=== PATIENT | female | born 1950 | race Caucasian/White ===

== ENCOUNTER 2016-06-21 09:25 | Observation (INO) | payer OTHER ==
[2016-06-21] VITALS (12 sets, daily range): BP systolic 119–154; BP diastolic 69–85; PULSE 65–87; RESP 16–18; TEMP 96.9–98; O2SAT 97–100
[~2016-06-21] VITALS: Ht 162.6 cm; Wt 70.0 kg
[~2016-06-21 09:25] MED LIST: CYCL5TAB PO; LORT7.5T3 PO; Z.0.NO CURRENT MEDS
[2016-06-21] MEDS ORDERED: SODIUM CHLORIDE 0.9% FLUSH 5 ML FLUSH IVF PRN ×2 (10:15→12:30)
[2016-06-21 10:26] LABS: BLOOD, URINE NEG (NEG); GLUCOSE,URINE NEG (NEG); KETONE, URINE NEG (NEG); NITRITE,URINE NEG (NEG)
[2016-06-21 10:26] LABS: BASOPHIL # 0.1 TH/MM3 (0-0.2); BASOPHIL % 2.2 % (0.0-2.0); EOSINOPHIL # 0.1 TH/MM3 (0-0.4); EOSINOPHIL % 1.9 % (0.0-4.0); HEMO FLAGS DIFF FINAL; LYMPH % 38.6 % (9.0-44.0); LYMPHOCYTE # 2.4 TH/MM3 (1.0-4.8); MEAN CORPUSCULAR HEMOGLOBIN 30.7 PG (27.0-34.0); MEAN CORPUSCULAR HGB CONC 34.9 % (32.0-36.0); MONO % 9.1 % (0.0-8.0); NEUT % 48.2 % (16.0-70.0); PLATELET COUNT 210 TH/MM3 (150-450); RED BLOOD COUNT 4.54 MIL/MM3 (4.00-5.30); RED CELL DISTRIBUTION WIDTH 12.7 % (11.6-17.2); WHITE BLOOD COUNT 6.2 TH/MM3 (4.0-11.0)
--- NOTE | 2016-06-21 10:26 | RADHPO ---
EXAM DATE/TIME: 06/21/2016 10:08 [facility] COMPARISON: No previous studies available for comparison. INDICATIONS : Chest pain for 3 weeks and dizziness for 2 days. MEDICAL HISTORY : None. SURGICAL HISTORY : None. ENCOUNTER: Initial ACUITY: 3 weeks PAIN SCORE: 2/10 LOCATION: Bilateral chest FINDINGS: A single view of the chest demonstrates the lungs to be symmetrically aerated without evidence of mas s, infiltrate or effusion. The cardiomediastinal contours are unremarkable. Osseous structures are intact. CONCLUSION: Normal examination. Josseline Krishnamurthy MD on June 21, 2016 at 10:25 Board Certified Radiologist. This report was verified electronically.
[2016-06-21 10:30] LABS: METHOD OF COLLECTION CLEAN CATCH; URINE COLOR YELLOW (YELLW/STRAW)
[2016-06-21 10:31] LABS: COMMENT (UR) CULT NOT INDICATED; CULTURE IF INDICATED CULT NOT INDICATED; RBC, URINE 0-3 /hpf (0-3); SQUAMOUS EPITHELIAL CELL URINE 0-5 /hpf (0-5)
[2016-06-21 10:35] LABS: CHLORIDE 106 MEQ/L (98-107); POTASSIUM 3.8 MEQ/L (3.5-5.1); SODIUM (NA) 143 MEQ/L (136-145)
[2016-06-21 10:39] LABS: ANION GAP 8 MEQ/L (5-15); BICARBONATE 28.6 MEQ/L (21.0-32.0); BLOOD UREA NITROGEN 12 MG/DL (7-18)
[2016-06-21 10:42] LABS: ALT (GPT) 15 U/L (10-53); APTT (PATIENT) 26.4 SEC (24.3-30.1); AST (GOT) 12 U/L (15-37); GLOMERULAR FILTRATION RATE 96 ML/MIN (>89); PROTHROMBIN TIME - PATIENT 10.5 SEC (9.8-11.6)
[2016-06-21 10:44] LABS: TOTAL BILIRUBIN ADULT 0.3 MG/DL (0.2-1.0)
[2016-06-21 10:45] LABS: ALKALINE PHOSPHATASE 92 U/L (45-117)
[2016-06-21 10:46] LABS: CREATINE KINASE 69 U/L (26-192)
--- NOTE | 2016-06-21 10:50 | PD ---
HPI Chief Complaint: Cardiac Complaint Time Seen by Provider: 09:56 Travel History International Travel<30 days: No Contact w/Intl Traveler<30days: No Traveled to known affect area: No History of Present Illness HPI 66-year-old female here for evaluation of mid/upper back pain, bilateral shoulder pain, and dizziness. For the last 2 days patient has had intermittent bilateral shoulder pain, no trauma, described as an ache. Today when she woke up she noticed a pain in her mid upper back and felt dizzy/lightheaded. Patient denies any history of cardiac disease. She feels intermittently short of breath. No fevers, chills, cough, or recent illness. No paresthesias or motor deficits. No urinary symptoms. No modifying factors to back pain. PFSH Past Medical History Diminished Hearing: No Gastrointestinal Disorders: Yes Menopausal: Yes Past Surgical History Appendectomy: Yes Social History Alcohol Use: No Tobacco Use: No Substance Use: No Allergies-Medications (Allergen,Severity, Reaction): Coded Allergies: No Known Allergies (Verified , 06/21/16) Reported Meds & Prescriptions Reported Meds & Active Scripts Active No Active Prescriptions or Reported Medications Review of Systems Except as stated in HPI: all other systems reviewed are Neg Physical Exam Narrative GENERAL: Well-developed, well-nourished, comfortable, no acute distress. SKIN: Warm and dry. No rash. HEAD: Atraumatic. Normocephalic. EYES: Pupils equal and round. No scleral icterus. No injection or drainage. ENT: No nasal bleeding or discharge. Mucous membranes pink and moist. Bilateral tympanic members and external auditory canals are normal. NECK: Trachea midline. No JVD. No nuchal rigidity. CARDIOVASCULAR: Regular rate and rhythm. Distal pulses brisk and equal bilaterally. RESPIRATORY: No accessory muscle use. Clear to auscultation. Breath sounds equal bilaterally. GASTROINTESTINAL: Abdomen soft, non-tender, nondistended. MUSCULOSKELETAL: No obvious deformities. No clubbing. No cyanosis. No edema. No midline vertebral step-off or tenderness. NEUROLOGICAL: Awake and alert. No obvious cranial nerve deficits. Motor grossly within normal limits. Normal speech. PSYCHIATRIC: Appropriate mood and affect; insight and judgment normal. Data Data Last Documented VS Vital Signs Date Time Temp Pulse Resp B/P Pulse Ox O2 Delivery O2 Flow Rate FiO2 06/21/16 11:20 68 16 140/75 100 Room Air 06/21/16 09:45 98.0 Orders Complete Blood Count With Diff (06/21/16 10:02) Comprehensive Metabolic Panel (06/21/16 10:02) Act Partial Throm Time (Ptt) (06/21/16 10:02) Prothrombin Time / Inr (Pt) (06/21/16 10:02) Ckmb (Isoenzyme) Profile (06/21/16 10:02) Troponin I (06/21/16 10:02) Urinalysis - C+S If Indicated (06/21/16 10:02) Influenzae A/B Antigen (06/21/16 10:02) Iv Access Insert/Monitor (06/21/16 10:02) Ecg Monitoring (06/21/16 10:02) Oximetry (06/21/16 10:02) Oxygen Administration (06/21/16 10:02) Chest, Single Ap (06/21/16 10:02) Sodium Chloride 0.9% Flush (Ns Flush) (06/21/16 10:15) Cta Thor Abd Aorta W Iv C W3d (06/21/16 ) Ct Brain W/O Iv Contrast(Rout) (06/21/16 ) Sodium Chlor 0.9% 1000 Ml Inj (Ns 1000 M (06/21/16 11:00) Meclizine (Antivert) (06/21/16 11:00) Iohexol 350 Inj (Omnipaque 350 Inj) (06/21/16 11:34) Acetaminophen (Tylenol) (06/21/16 11:45) Aspirin Chew (Aspirin Chew) (06/21/16 12:15) Labs Laboratory Tests Test 06/21/16 06/21/16 09:40 10:20 White Blood Count 6.2 TH/MM3 Red Blood Count 4.54 MIL/MM3 Hemoglobin 13.9 GM/DL Hematocrit 40.0 % Mean Corpuscular Volume 88.0 FL Mean Corpuscular Hemoglobin 30.7 PG Mean Corpuscular Hemoglobin 34.9 % Concent Red Cell Distribution Width 12.7 % Platelet Count 210 TH/MM3 Mean Platelet Volume 10.7 FL Neutrophils (%) (Auto) 48.2 % Lymphocytes (%) (Auto) 38.6 % Monocytes (%) (Auto) 9.1 % Eosinophils (%) (Auto) 1.9 % Basophils (%) (Auto) 2.2 % Neutrophils # (Auto) 3.0 TH/MM3 Lymphocytes # (Auto) 2.4 TH/MM3 Monocytes # (Auto) 0.6 TH/MM3 Eosinophils # (Auto) 0.1 TH/MM3 Basophils # (Auto) 0.1 TH/MM3 CBC Comment DIFF FINAL Differential Comment Prothrombin Time 10.5 SEC Prothromb Time International 1.0 RATIO Ratio Activated Partial 26.4 SEC Thromboplast Time Sodium Level 143 MEQ/L Potassium Level 3.8 MEQ/L Chloride Level 106 MEQ/L Carbon Dioxide Level 28.6 MEQ/L Anion Gap 8 MEQ/L Blood Urea Nitrogen 12 MG/DL Creatinine 0.62 MG/DL Estimat Glomerular Filtration 96 ML/MIN Rate Random Glucose 89 MG/DL Calcium Level 8.6 MG/DL Total Bilirubin 0.3 MG/DL Aspartate Amino Transf 12 U/L (AST/SGOT) Alanine Aminotransferase 15 U/L (ALT/SGPT) Alkaline Phosphatase 92 U/L Total Creatine Kinase 69 U/L Troponin I LESS THAN 0.02 NG/ML Total Protein 7.5 GM/DL Albumin 3.4 GM/DL Urine Collection Type CLEAN CATCH Urine Color YELLOW Urine Turbidity CLEAR Urine pH 6.0 Urine Specific [place] 1.016 Urine Protein NEG mg/dL Urine Glucose (UA) NEG mg/dL Urine Ketones NEG mg/dL Urine Occult Blood NEG Urine Nitrite NEG Urine Bilirubin NEG Urine Leukocyte Esterase SMALL Urine RBC 0-3 /hpf Urine WBC 3-5 /hpf Urine Squamous Epithelial 0-5 /hpf Cells Microscopic Urinalysis Comment CULT NOT INDICATED Urine Collection Time 10:20 MDM Medical Decision Making Medical Screen Exam Complete: Yes Emergency Medical Condition: Yes Interpretation(s) EKG: Sinus, rate 69, normal axis, normal intervals, low QRS full touches, no acute ischemic abnormality. Differential Diagnosis ACS, pneumothorax, pericarditis, PE, pneumonia, dissection, thoracic aneurysm, anemia, intracranial abnormality, vertigo, UTI, electrolyte abnormality Narrative Course Vital signs show heart rate 70, blood pressure 141/85, pulse ox 100% on room air , oral temp of 98F. CBC is unremarkable. CMP is unremarkable. Cardiac enzymes are negative. Influenza is negative. UA is not suggestive of UTI. Chest x-ray read as normal examination. CT head read as no acute disease. CT aorta: The thoracic aorta is intact. There is no evidence of dissection. The abdominal aorta and iliac vessels are intact. The pulmonary arteries are patent. The patient and the patient's were made aware of all findings. The patient is still complaining of pain between her shoulder blades as well as dizziness. There is no tenderness to her upper back. Pain does not appear to be musculoskeletal and could be a chest pain equivalent. She was given meclizine and a liter of normal saline. I will also give her aspirin. I will admit her to the chest pain center for further cardiac evaluation. She is amenable to this plan. Case discussed with hospitalist Dr. Woods who will admit the patient to her service. Diagnosis Primary Impression: Chest pain Qualified Code: R07.9 - Chest pain, unspecified type Additional Impression: Dizziness Admitting Information Admitting Physician Requests: Observation Scripts No Active Prescriptions or Reported Meds Giorgi Hendricks MD Jun 21, 2016 10:49
[2016-06-21] MEDS ORDERED: SODIUM CHLOR 0.9% 1000 ML INJ 1,000 ML IV ONE (11:00)
[2016-06-21] MEDS ORDERED: MECLIZINE HCL 25 MG TAB PO ONE (11:00)
--- NOTE | 2016-06-21 11:33 | RADHPO ---
EXAM DATE/TIME: 06/21/2016 10:49 [facility] COMPARISON: CT BRAIN W/O CONTRAST, November 17, 2010, 20:59. INDICATIONS : Dizziness. RADIATION DOSE: 67.85 CTDIvol (mGy) MEDICAL HISTORY : None SURGICAL HISTORY : Appendectomy. ENCOUNTER: Initial ACUITY: 1 week PAIN SCALE: 5/10 LOCATION: cranial TECHNIQUE: Multiple contiguous axial images were obtained of the head. Using automated exposure control and adj ustment of the mA and/or kV according to patient size, radiation dose was kept as low as reasonably a chievable to obtain optimal diagnostic quality images. FINDINGS: CEREBRUM: The ventricles are normal for age. No evidence of midline shift, mass lesion, hemorrhage or acute in farction. No extra-axial fluid collections are seen. POSTERIOR FOSSA: The cerebellum and brainstem are intact. The 4th ventricle is midline. The cerebellopontine angle i s unremarkable. EXTRACRANIAL: The visualized portion of the orbits is intact. SKULL: The calvaria is intact. No evidence of skull fracture. CONCLUSION: No acute disease. Josseline Krishnamurthy MD on June 21, 2016 at 11:30 Board Certified Radiologist. This report was verified electronically.
[2016-06-21] MEDS ORDERED: IOHEXOL 350 MG/ML 10 ML VIAL (for RAD DIAG) IV ONE (11:34)
[2016-06-21] MEDS ORDERED: ACETAMINOPHEN 325 MG TAB PO ONE (11:45)
--- NOTE | 2016-06-21 12:02 | RADHPO ---
EXAM DATE/TIME: 06/21/2016 10:55 [facility] COMPARISON: CT BRAIN W/O CONTRAST, June 21, 2016, 10:49. INDICATIONS : Dizziness. Heart palpitations. Pain between shoulder blades. IV CONTRAST: 85 cc Omnipaque 350 (iohexol) IV RADIATION DOSE: 8.72 CTDIvol (mGy) MEDICAL HISTORY : None SURGICAL HISTORY : Appendectomy. ENCOUNTER: Initial ACUITY: 1 week PAIN SCALE: 8/10 LOCATION: Bilateral chest TECHNIQUE: Volumetric scanning was performed using a multi-row detector CT scanner. The data was post processed with a variety of visualization algorithms including full volume maximum intensity projection, multi -planar sliding thin slab reformation, curved planar reformation, and surface rendering techniques. Using automated exposure control and adjustment of the mA and/or kV according to patient size, radiat ion dose was kept as low as reasonably achievable to obtain optimal diagnostic quality images. FINDINGS: Thoracic aorta: The aortic root is normal in caliber. The ascending aorta is normal in size. There is normal anatomic branching of the great vessels. The origin of the great vessels are widely patent. The aortic arch a nd descending thoracic aorta are normal in caliber. There is no evidence of dissection. The pulmonary arteries are patent. Abdominal aorta: The celiac, SMA, renal arteries and NEIDA are widely patent. The abdominal aorta is normal in caliber. The common iliac, internal iliac and external iliac circulation is widely patent. CT source data: The visualized pulmonary parenchyma is clear. There is no significant hilar or mediastinal adenopathy . No pericardial effusion is present. No pleural effusion is present. Imaging through the upper abdom en demonstrates several simple cysts within the liver. There is no retroperitoneal lymphadenopathy. T he spleen, pancreas, adrenal glands and kidneys are intact. The visualized loops of small large bowel are unremarkable. CONCLUSION: 1. The thoracic aorta is intact. There is no evidence of dissection. 2. The abdominal aorta and iliac vessels are intact. Fabio Sofia MD on June 21, 2016 at 11:54 Board Certified Radiologist. This report was verified electronically.
[2016-06-21] MEDS ORDERED: ASPIRIN 81 MG CHEW TAB PO ONE (12:15)
[2016-06-21] MEDS ORDERED: ACETAMINOPHEN/HYDROcodone 325 MG/7.5 MG TAB PO PRN (12:30)
[2016-06-21] MEDS ORDERED: MORPHINE SULFATE 4 MG/ML INJ IV PRN (12:30)
[2016-06-21] MEDS ORDERED: NITROGLYCERIN 0.4 MG SL 25 TABS/BTL SL PRN (12:30)
[2016-06-21] MEDS ORDERED: ACETAMINOPHEN 500 MG CPLT PO PRN (12:30)
[2016-06-21] MEDS ORDERED: ONDANSETRON HCL 4 MG/2 ML VIAL IV PRN (12:30)
[2016-06-21] MEDS ORDERED: cloNIDine HCL 0.1 MG TAB PO PRN (12:45)
[2016-06-21 13:16] LABS: CREATINE KINASE 53 U/L (26-192)
--- NOTE | 2016-06-21 14:07 | HHI.HP ---
[facility] Service [facility] Primary Care Physician Ranjit Vazquez M.D. Admission Diagnosis chest pain Diagnoses: (1) Dizziness Diagnosis: Principal (2) Chest pain Diagnosis: Principal (3) Back pain Diagnosis: Principal Chief Complaint: heart racing, dizziness, chest pain, back pain Travel History International Travel<30 Days: No Contact w/Intl Traveler <30 Da: No Traveled to Known Affected Are: No History of Present Illness 66-year-old female with history of gastritis recently diagnosed but no other significant medical history was admitted to chest pain center although primary complaint is dizziness. Patient states that her heart has been racing for the past month. She states today she started to experience back pain and left shoulder pain which has been constant since midnight today, and had R shoulder pain prior to this. Dizziness started today. Patient feels like the room is spinning. Her states she had significant difficulty ambulating because of it. Patient denies any exacerbation with head movement. She states she did have an episode of this 2 years ago and was evaluated by her PCP at that time who thought she had an inner ear issue and she was prescribed medication. She additionally felt numbness in her left fingers this morning. She states she's had some left-sided chest pain over the past week. She also states she has some pain at the base of the right neck. She denies any diaphoresis or shortness of breath. She denies any fevers or chills, or recent cold symptoms. Denies any blurred vision, double vision, altered speech, or focal weakness. States she's had some nausea. She states her appetite is good but she hesitates to to eat as she recently had an endoscopy on Saturday by Dr. Max revealing gastritis. States she has been hydrating. Her states she was supposed to undergo a liver ultrasound tomorrow and is scheduled for a HIDA scan on Saturday. Patient denies any abdominal pain, vomiting, or diarrhea. She denies any melena or hematochezia. Patient has appointment Dr. Howe as a new patient on 07/02/16. Review of Systems Constitutional: COMPLAINS OF: Dizziness, DENIES: Diaphoretic episodes, Fever, Chills Eyes: DENIES: Blurred vision, Diplopia Ears, nose, mouth, throat: DENIES: Throat pain, Ear Pain, Running Nose Respiratory: DENIES: Cough, Shortness of breath Cardiovascular: COMPLAINS OF: Chest pain, Palpitations, DENIES: Lower Extremity Edema Gastrointestinal: COMPLAINS OF: Nausea, DENIES: Abdominal pain, Black stools, Bloody stools, Diarrhea, Vomiting, Anorexia Musculoskeletal: COMPLAINS OF: Back pain, Neck pain Neurologic: COMPLAINS OF: Paresthesias, DENIES: Localized weakness, Speech Problems Other ROS x 10 negative unless otherwise indicated above. Past Family Social History Past Medical History Gastritis Possible episode of vertigo 2 years ago Past Surgical History Appendectomy Reported Medications Reported Meds & Active Scripts Active No Active Prescriptions or Reported Medications Allergies: Coded Allergies: No Known Allergies (Verified , 06/21/16) Family History Mother: at age 90. Father: Hypertension; at age 76. Older sister still living, healthy. Social History Denies alcohol use, tobacco use, or illicit drug use. Physical Exam Vital Signs Vital Signs Date Time Temp Pulse Resp B/P Pulse Ox O2 Delivery O2 Flow Rate FiO2 06/21/16 14:04 74 16 146/73 100 Room Air 06/21/16 13:18 98 21 06/21/16 12:46 18 06/21/16 12:19 65 16 150/71 99 Room Air 06/21/16 11:20 68 16 140/75 100 Room Air 06/21/16 09:45 98.0 70 18 141/85 100 06/21/16 09:40 100 Room Air 06/21/16 09:40 100 Room Air Physical Exam GENERAL: This is a well-nourished, well-developed patient, in no apparent distress. SKIN: No rashes, ecchymoses or lesions. HEAD: Atraumatic. Normocephalic. EYES: Pupils equal round and reactive. Extraocular motions intact. No scleral icterus. No injection or drainage. ENT: Left TM dull, but no erythema of TMs bilaterally. No TM perforation or drainage in EACs. Throat without erythema, tonsillar hypertrophy or exudate. Uvula midline. Airway patent. NECK: Trachea midline. No carotid bruits bilaterally. Tender over base of right neck. CARDIOVASCULAR: Regular rate and rhythm without murmurs, gallops, or rubs. RESPIRATORY: Clear to auscultation. Breath sounds equal bilaterally. No wheezes , rales, or rhonchi. GASTROINTESTINAL: Abdomen soft, non-tender, nondistended. No guarding. MUSCULOSKELETAL: Reproducible tenderness over left thoracic paraspinal muscles. No lower extremity edema bilaterally. NEUROLOGICAL: Awake and alert. No obvious cranial nerve deficits. Motor grossly within normal limits. Five out of 5 muscle strength in bilateral arms and legs. Normal speech. Laboratory Laboratory Tests Test 06/21/16 06/21/16 06/21/16 09:40 10:20 12:40 White Blood Count 6.2 Red Blood Count 4.54 Hemoglobin 13.9 Hematocrit 40.0 Mean Corpuscular Volume 88.0 Mean Corpuscular Hemoglobin 30.7 Mean Corpuscular Hemoglobin 34.9 Concent Red Cell Distribution Width 12.7 Platelet Count 210 Mean Platelet Volume 10.7 Neutrophils (%) (Auto) 48.2 Lymphocytes (%) (Auto) 38.6 Monocytes (%) (Auto) 9.1 Eosinophils (%) (Auto) 1.9 Basophils (%) (Auto) 2.2 Neutrophils # (Auto) 3.0 Lymphocytes # (Auto) 2.4 Monocytes # (Auto) 0.6 Eosinophils # (Auto) 0.1 Basophils # (Auto) 0.1 CBC Comment DIFF FINAL Differential Comment Prothrombin Time 10.5 Prothromb Time International 1.0 Ratio Activated Partial 26.4 Thromboplast Time Sodium Level 143 Potassium Level 3.8 Chloride Level 106 Carbon Dioxide Level 28.6 Anion Gap 8 Blood Urea Nitrogen 12 Creatinine 0.62 Estimat Glomerular Filtration 96 Rate Random Glucose 89 Calcium Level 8.6 Total Bilirubin 0.3 Aspartate Amino Transf 12 (AST/SGOT) Alanine Aminotransferase 15 (ALT/SGPT) Alkaline Phosphatase 92 Total Creatine Kinase 69 53 Troponin I LESS THAN 0.02 LESS THAN 0.02 Total Protein 7.5 Albumin 3.4 Urine Collection Type CLEAN CATCH Urine Color YELLOW Urine Turbidity CLEAR Urine pH 6.0 Urine Specific [place] 1.016 Urine Protein NEG Urine Glucose (UA) NEG Urine Ketones NEG Urine Occult Blood NEG Urine Nitrite NEG Urine Bilirubin NEG Urine Leukocyte Esterase SMALL Urine RBC 0-3 Urine WBC 3-5 Urine Squamous Epithelial 0-5 Cells Microscopic Urinalysis Comment CULT NOT INDICATED Urine Collection Time 10:20 Date/Time Procedure Status Source Growth 06/21/16 10:15 Influenza Types A,B Antigen ([facility]) - Final Complete Nasal Washing NEGATIVE FOR FLU A AND B ANTIGEN.... Result Diagram: 06/21/16 0940 06/21/16 0940 Imaging Last Impressions Chest X-Ray 06/21/16 1002 Signed Impressions: Service Date/Time: , June 21, 2016 10:08 - CONCLUSION: Normal examination. Josseline Krishnamurthy MD Head CT 06/21/16 0000 Signed Impressions: Service Date/Time: , June 21, 2016 10:49 - CONCLUSION: No acute disease. Josseline Krishnamurthy MD Aorta CTA 06/21/16 0000 Signed Impressions: Service Date/Time: May 10:55 - CONCLUSION: 1. The thoracic aorta is intact. There is no evidence of dissection. 2. The abdominal aorta and iliac vessels are intact. Fabio Sofia MD Assessment and Plan Assessment and Plan 66-year-old female with: Dizziness: Started today. Sounds like vertigo as patient feels the room is spinning. Worse with sitting forward or ambulating. Head CT personally reviewed and normal. -MRI and MRA brain -MRA carotids -Meclizine tid prn -IV NS -Orthostatic vital signs -Telemetry Chest pain/back pain: Patient does have some reproducible tenderness over the left thoracic paraspinal muscles but has also been experiencing left-sided chest pain at times over the past week and has been having "racing heart" for the past month. Chest x-rays personally interpreted and normal. Aorta CTA was performed without evidence of dissection. Blood pressure stable. Troponin 2 less than 0.02. EKGs 2 personally interpreted with sinus rhythm and no evidence of ischemia. -Nitro/Gallitzin/morphine prn pain -Daily 325 mg aspirin -Lexiscan to be performed today. RN informs me patient last ate at 4 AM and has had no caffeine or decaf beverages. DVT prophylaxis: TEDs/SCDs. Avoid chemical prophylaxis due to recent gastritis. Discussed Condition With Dr. Woods attending Problem Qualifiers (1) Chest pain: Qualified Code: R07.9 - Chest pain, unspecified type (2) Back pain: Qualified Code: M54.6 - Acute left-sided thoracic back pain Shavon Montiel Jun 21, 2016 14:07
[2016-06-21] MEDS ORDERED: MECLIZINE HCL 25 MG TAB PO PRN (14:15)
[2016-06-21] MEDS: SODIUM CHLOR 0.9% 1000 ML INJ 1,000 ML IV SCH ×2 (14:54→18:32)
[2016-06-21] MEDS ORDERED: REGADENOSON INJ 0.4 MG/5 ML SYR IV ONE (17:08)
--- NOTE | 2016-06-21 17:26 | RADHPO ---
EXAM DATE/TIME: 06/21/2016 16:01 [facility] COMPARISON: No previous studies available for comparison. INDICATIONS : Dizziness. CONTRAST: 20 cc Omniscan (gadodiamide) IV MEDICAL HISTORY : None. SURGICAL HISTORY : Appendectomy. ENCOUNTER: Initial ACUITY: 1 day PAIN SCORE: 7/10 LOCATION: Bilateral cranial TECHNIQUE: Multiplanar, multisequence MRI of the brain was performed both prior to and following the administrat ion of paramagnetic contrast. FINDINGS: CEREBRUM: The ventricles are normal for age. No evidence of midline shift, mass lesion, hemorrhage or acute in farction. No extraaxial fluid collections are seen. The pituitary gland and suprasellar cistern are normal in configuration. WHITE MATTER: No significant signal abnormalities are seen in the white matter. POSTERIOR FOSSA: The cerebellum and brainstem are intact. The 4th ventricle is midline. The cerebellopontine angle is unremarkable. The cerebellar tonsils are normal in position. DIFFUSION IMAGING: No focal areas of restricted diffusion are seen. No evidence of acute infarction. EXTRACRANIAL: The visualized portions of the orbits and paranasal sinuses are unremarkable. POST-CONTRAST: No abnormal areas of parenchymal or dural enhancement. No evidence of blood-brain barrier breakdown. CONCLUSION: 1. Normal examination. Fabio Sofia MD on June 21, 2016 at 17:16 Board Certified Radiologist. This report was verified electronically.
--- NOTE | 2016-06-21 17:30 | RADHPO ---
EXAM DATE/TIME: 06/21/2016 16:01 [facility] COMPARISON: No previous studies available for comparison. INDICATIONS : Dizziness. MEDICAL HISTORY : None. SURGICAL HISTORY : Appendectomy. ENCOUNTER: Initial ACUITY: 1 day PAIN SCORE: 6/10 LOCATION: Bilateral cranial Please note a normal MRA of the brain does not entirely exclude the possibility of a small aneurysm, nor the possibility of distal intracranial vessel disease. TECHNIQUE: 3D time of flight MRA was performed. Source images, multiplanar STS MIP, and 3D volume MIP reconstru ctions were reviewed. FINDINGS: Anterior circulation: The internal carotid arteries demonstrate no abnormality or atherosclerotic change. A1 segments and m ore distal anterior cerebral arteries are symmetric and within normal limits. The middle cerebral art ivan branches demonstrate symmetric flow related enhancement. No aneurysm or high-grade stenosis is id entified. Posterior circulation: There are patent posterior cerebral arteries bilaterally. Vertebral arteries are codominant. The basi lar artery and posterior cerebral arteries demonstrate no significant stenosis or abnormality. No ane urysm is visualized. CONCLUSION: No intracranial vascular abnormality is identified. Eliseo Amado MD on June 21, 2016 at 17:26 Board Certified Radiologist. This report was verified electronically.
--- NOTE | 2016-06-21 18:19 | RADHPO ---
EXAM DATE/TIME: 06/21/2016 16:01 [facility] COMPARISON: No previous studies available for comparison. INDICATIONS : Dizziness. CONTRAST: 20 cc Omniscan (gadodiamide) IV MEDICAL HISTORY : None. SURGICAL HISTORY : Appendectomy. ENCOUNTER: Initial ACUITY: 1 day PAIN SCORE: 7/10 LOCATION: Bilateral cranial Percent stenosis is calculated using the diameter of the stenotic region over the diameter of the nor mal distal internal carotid artery. TECHNIQUE: Bolus infused MRA of the extracranial circulation was performed using a neurovascular coil. Post pro cessing was performed including rotationg subvolume maximum intensity projections of each carotid art ivan, rotating full volume maximum intensity projections of both carotid arteries, sagittal and robledo l sliding thin slab reformations of each carotid artery, and left oblique sliding thin slab reformati on through the aortic arch to include the origin of the arch branch vessels. FINDINGS: AORTIC ARCH: There is a three vessel origin of the great vessels from the aorta. No evidence of ostial narrowing. RIGHT CAROTID: The common carotid artery is intact. The carotid bulb has a normal configuration without ulceration or narrowing. The internal carotid artery lumen is smooth without stenosis. The external carotid ar margo is intact. LEFT CAROTID: The common carotid artery is intact. The carotid bulb has a normal configuration without ulceration or narrowing. The internal carotid artery lumen is smooth without stenosis. The external carotid ar margo is intact. VERTEBRALS: The vertebral arteries have a symmetric diameter. No stenotic lesions are seen. CONCLUSION: Normal examination. Eliseo Monsivais MD on June 21, 2016 at 18:04 Board Certified Radiologist. This report was verified electronically.
[2016-06-21] MEDS ORDERED: GADODIAMIDE PF 287 MG/ML 20 ML VIAL (for RAD MRI) IV ONE (18:29)
--- NOTE | 2016-06-21 18:41 | RADHPO ---
EXAM DATE/TIME: 06/21/2016 17:15 [place] COMPARISON: No previous studies available for comparison. INDICATIONS : Left sided chest pain for 1 week. Left shoudler and back pain with dizziness and racing heart. Angina . DOSE: 27.3 mCi Tc99m Myoview at stress. 8.5 mCi Tc99m Myoview at rest. 0.4 mg Lexiscan STRESS SYMPTOMS: Chest pain, shortness of breath and stomach pain. EJECTION FRACTION: 55% MEDICAL HISTORY : None SURGICAL HISTORY : Appendectomy. ENCOUNTER: Initial ACUITY: 1 week PAIN SCALE: 4/10 LOCATION: Left chest TECHNIQUE: The patient underwent pharmacologic stress with infusion of prescribed dose. Continuous ECG tracing was monitored during stress. Gated SPECT imaging was performed after stress and conventional SPECT i maging was performed at rest. The examination was performed on a SPECT/CT scanner, both attenuation and non-corrected datasets were reviewed. FINDINGS: DISTRIBUTION: The maximum perfused segment at stress is in the anterolateral wall. PERFUSION STUDY: The pattern of perfusion at stress is within normal limits. GATED STUDY: There is intact wall motion and thickening without hypokinetic or dyskinetic segments. CONCLUSION: Normal examination. RISK CATEGORY: Low (<1% Annual Mortality Rate) Eliseo Monsivais MD on June 21, 2016 at 18:38 Board Certified Radiologist. This report was verified electronically.
[2016-06-21] MEDS: SODIUM CHLORIDE 0.9% FLUSH 5 ML FLUSH IVF SCH (23:02)
[2016-06-22 04:00] VITALS: BP 107/64; PULSE 56; RESP 16; TEMP 97.2; O2SAT 96
[2016-06-22 08:00] VITALS: BP 116/70; PULSE 68; PULSE 70; RESP 18; TEMP 96.7; O2SAT 97
[2016-06-22 08:04] VITALS: O2SAT 97
[2016-06-22] MEDS: SODIUM CHLORIDE 0.9% FLUSH 5 ML FLUSH IVF SCH (09:00)
[2016-06-22] MEDS ORDERED: ASPIRIN 325 MG TAB PO SCH (09:00)
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
--- NOTE | 2016-06-22 11:18 | HHI.DCPOC ---
Discharge Care Plan Diagnosis: (1) Dizziness (2) Chest pain (3) Back pain Your Health Problems Are: Chest Pain Goals to Promote Your Health * To prevent worsening of your condition and complications * To maintain your health at the optimal level Directions to Meet Your Goals Take your medications as prescribed Follow your dietary instruction Follow activity as directed Keep your appointments as scheduled Take your immunizations and boosters as scheduled If your symptoms worsen call your PCP, if no PCP go to Urgent Care Center or Emergency Room Smoking is Dangerous to Your Health. Avoid second hand smoke Call the 24-hour hour crisis hotline for domestic abuse at Shavon Montiel Jun 22, 2016 11:18
[2016-06-22] MEDS ORDERED: MECL-62 PO (11:24)
[2016-06-22 11:30] VITALS: BP_SYST 107; BP_SYST 116; BP_DIAS 60; BP_DIAS 70; BP_DIAS 85; PULSE 62; RESP 18; TEMP 96.9; O2SAT 98
--- NOTE | 2016-06-22 15:22 | EKG ---
Date Performed: 06/21/2016 Time Performed: 12:48:06 PTAGE: 66 years EKG: Sinus bradycardia Low QRS voltages in precordial leads Borderline ECG PREVIOUS TRACING : 06/21/2016 09.37 Since previous tracing, no significant change noted DOCTOR: Tl Cochran Interpretating Date/Time 06/22/2016 15:21:10
--- NOTE | 2016-06-22 15:23 | EKG ---
Date Performed: 06/21/2016 Time Performed: 09:37:48 PTAGE: 66 years EKG: Sinus rhythm Low QRS voltages in precordial leads Borderline ECG PREVIOUS TRACING : 11/17/2010 21.27 Since previous tracing, no significant change noted DOCTOR: Tl Cochran Interpretating Date/Time 06/22/2016 15:21:57
--- NOTE | 2016-06-22 15:28 | TR ---
Date Performed: 06/21/2016 Time Performed: 17:28:14 DOCTOR: Tl Cochran DRUG LIST: CLINICAL HISTORY: CHEST PAIN REASON FOR TEST: Chest pain. REASON FOR ENDING: OBSERVATION: CONCLUSION: Lexiscan stress test was performed under standard four minute protocol. Radionucl[place] e was injected one minute prior to ending the test. No electrocardiographic abormalities were present to suggest ischemia. Nuclear imaging and interpretation are pending. COMMENTS:
== END 2016-06-22 12:40 | disposition home or self-care (01) ==
LOC: PHED 09:25 → PHEDA 12:20 → PHEDH 16:27 → PH3A 21:12
PROVIDERS: ADMIT Hospitalist; ATTEND Hospitalist
DX: R07.9 Chest pain, unspecified (principal); R42 Dizziness and giddiness; K21.9 Gastro-esophageal reflux disease without esophagitis; M54.6 Pain in thoracic spine; R94.31 Abnormal electrocardiogram [ECG] [EKG]
CPT/HCPCS: 70450; 70544; 70548; 70553; 71010; 71275; 74174; 78452; 80053; 81001; 82550; 84484; 85025; 85610; 85730; 87804; 93005; 93017; 96360; 96361; 97162; 99285; A9502; A9579; G0378; G8987; G8988; J2785; J7030; Q9967